=== PATIENT | female | born 1960 | race African-American/Black ===

== ENCOUNTER → 2017-02-15 | Day surgery (SDC) | payer OTHER ==
[~2017-02-15] MED LIST: AMIT1TAB79 PO; BUPIVACAINE HCL PF 0.5% 30 ML VIAL ONE; ESTR.625 PO; METF500T PO; MIDAZOLAM HCL 2 MG/2 ML VIAL IV ONE; MYCO500 PO; NAPR220T95 PO; NEXI40CA PO; PROG100C PO; PROPOFOL 200 MG/20 ML AMP IV ONE; TOPA50TA7 PO; TRIAMCINOLONE ACETONIDE 40 MG/ML VIAL I-ARTICULR ONE; methylPREDNISolone ACETATE 40 MG/ML VIAL I-ARTICULR ONE
--- NOTE | 2017-02-20 08:49 | M6 ---
cc: TODD ALFARO M.D. DATE: 02/15/2017 DATE OF : 1960 PROCEDURE Fluoroscopically guided injection right sacroiliac joint. History and physical was completed and signed. Consent was signed. Procedure site was marked. Medications were listed and reconciled. Pain score was recorded. Allergies were noted. Time out was taken. Fluoroscopy time was recorded where applicable. Sedation was administered or directed by Dr. Alfaro. The patient was given oxygen. The patient was monitored by a registered nurse. Total procedure time was greater than 15 minutes. IV was started, blood pressure cuff, pulse oximeter and EKG were applied. The patient was placed in the prone position on a Go table sedated with small amounts of propofol titrated to effect. Vital signs were monitored and remained stable throughout the procedure the sacral area was prepped with alcohol and 10% Betadine solution and draped with sterile drapes. Fluoroscopy was used shooting from medial to lateral to clearly visualize the posterior joint line of the right sacroiliac joint and a 5-inch 22-gauge spinal needle was advanced into the joint under fluoroscopic guidance. There was negative aspiration for blood or any other type of fluid and the patient was given 2 mL of 0.5% Marcaine 20 mg of Depo-Medrol 20 mg of Kenalog. Following the procedure the patient was taken to the recovery room with stable vital signs neurologically intact. W. MD TETO Rios/silvio /8:42 AM /8:40 AM
== END | disposition home or self-care (01) ==
LOC: PHSDC 07:51
PROVIDERS: ATTEND Pain Medicine Interventional Pain Medicine
DX: M54.5 Low back pain (principal)
CPT/HCPCS: 27096; 99152; J1030; J2250; J3301; G0260

== ENCOUNTER → 2017-03-15 | Day surgery (SDC) | payer OTHER ==
[~2017-03-15] MED LIST changes: -BUPIVACAINE HCL PF 0.5% 30 ML VIAL ONE; +LIDOCAINE HCL 1% 30 ML VIAL INFIL ONE; +SODIUM CHLORIDE 0.9% 10 ML VIAL ONE; -TRIAMCINOLONE ACETONIDE 40 MG/ML VIAL I-ARTICULR ONE; +TRIAMCINOLONE ACETONIDE 40 MG/ML VIAL NERV BLOCK ONE; -methylPREDNISolone ACETATE 40 MG/ML VIAL I-ARTICULR ONE; +methylPREDNISolone ACETATE 80 MG/ML VIAL ONE
--- NOTE | 2017-03-16 13:10 | M6 ---
cc: REZA ALFARO DATE 03/15/2017 DATE OF 1960 PROCEDURE Fluoroscopically guided L5-S1 translaminar epidural steroid injection. PROCEDURE NOTE History and physical was completed and signed. Consent was signed. Procedure site was marked. Medications were listed and reconciled. Pain score was recorded. Allergies were noted. Time out was taken. Fluoroscopy time was recorded where applicable. Sedation was administered or directed by Dr. Alfaro. The patient was given oxygen. The patient was monitored by a registered nurse. Total procedure time was greater than 15 minutes. IV was started, blood pressure cuff, pulse oximeter and EKG were applied. The patient was placed in the prone position on a Go table, sedated with small amounts of propofol, fentanyl and Versed titrated to effect. Vital signs were monitored and remained stable throughout the procedure. The lumbar area was prepped with alcohol and 10% Betadine solution and draped with sterile drapes. Fluoroscopy was used to visualize the L5-S1 interlaminar space. The skin was infiltrated with 1% lidocaine using a 27 gauge needle. Then a 6-inch, 17-gauge Brandon needle was advanced using fluoroscopic guidance and the [id number] technique into the epidural space at L5-S1 slightly to the right of the midline. There was negative aspiration for blood or any other type of fluid and the patient was given 10 mL of half percent Xylocaine, 80 mg of Depo-Medrol. Following this, the patient was taken to the recovery room with stable vital signs neurologically intact. W. MD TETO Rios/MANUEL /8:40 AM /1:07 PM
== END | disposition home or self-care (01) ==
LOC: PHSDC 07:32
PROVIDERS: ATTEND Pain Medicine Interventional Pain Medicine
DX: M54.5 Low back pain (principal)
CPT/HCPCS: 62323; 99152; J1040; J2250; J3010; J3301

== ENCOUNTER → 2017-03-30 | Day surgery (SDC) | payer OTHER ==
[~2017-03-30] MED LIST changes: +*HYDROmorphone PF 1 MG VIAL PERIprocedural Use ONLY ONE; -LIDOCAINE HCL 1% 30 ML VIAL INFIL ONE; +LIDOCAINE HCL 1% PF 30 ML VIAL INFIL ONE; +methylPREDNISolone ACETATE 40 MG/ML VIAL IM ONE; -methylPREDNISolone ACETATE 80 MG/ML VIAL ONE
--- NOTE | 2017-03-30 21:47 | M6 ---
cc: TODD ALFARO M.D. DATE: 03/30/2017. DATE OF : 1960 PROCEDURE Fluoroscopically guided injection, right gluteus minimus/sciatic nerve. History and physical was completed and signed. Consent was signed. Procedure site was marked. Medications were listed and reconciled. Pain score was recorded. Allergies were noted. Time out was taken. Fluoroscopy time was recorded where applicable. Sedation was administered or directed by Dr. Alfaro. The patient was given oxygen. The patient was monitored by a registered nurse. Total procedure time was greater than 15 minutes. PROCEDURE NOTE: IV was started, blood pressure cuff, pulse oximeter and EKG were applied. The patient was placed in the prone position on a Go table sedated with small amounts of propofol titrated to effect. Vital signs were monitored and remained stable throughout the procedure. The right buttocks and hip area was prepped with alcohol and 10% Betadine solution and draped with sterile drapes. Fluoroscopy was used to visualize the acetabulum and the sciatic notch. Then a 5-inch 22-gauge spinal needle was advanced slightly cephalad to the acetabulum. There was negative aspiration for blood or any other type of fluid and the patient was given 10 mL of half percent Xylocaine 40 mg of Depo-Medrol and 20 mg of Kenalog. Following the procedure the patient was taken to the recovery room with stable vital signs neurologically intact. She will be evaluated immediately and with follow up to determine if she has a subjective decrease in her usual pain and a corresponding objective increase in her functional capabilities. WMD TETO Avila/DIANN /9:04 AM /9:44 PM
== END | disposition home or self-care (01) ==
LOC: PHSDC 06:44
PROVIDERS: ATTEND Pain Medicine Interventional Pain Medicine
DX: M79.651 Pain in right thigh (principal); Z88.2 Allergy status to sulfonamides; Z88.8 Allergy status to other drugs, medicaments and biological substances; Z91.018 Allergy to other foods
CPT/HCPCS: 64445; 77003; 99152; J1030; J1170; J2250; J3301